=== PATIENT | male | born 1950 | race Caucasian/White ===

== ENCOUNTER 2024-10-03 19:26 | Observation (INO) | payer MEDICARE ==
[2024-10-03] MEDS ORDERED: Aspirin Chewable 81 MG TAB ONE (19:56)
[2024-10-03 19:58] LABS: #Basophils Less than 0.03 10x3/uL (0.0-0.2); %Basophils 0.4 % (0.0-1.0); %Eosinophils 2.5 % (0.0-10.0); %Lymphocytes 35.3 % (21.0-51.0); %Monocytes 14.3 % (0.0-10.0); %Neutrophils 47.3 % (42.0-75.0); Hematocrit 44.6 % (42.0-52.0); Hemoglobin 14.6 g/dL (14.0-18.0); Mean Corpuscular HGB CONC 32.7 g/dL (32.0-36.0); Mean Corpuscular Hemoglobin 29.6 pg (27.0-31.0); Mean Corpuscular Volume 90.3 fL (78.0-98.0); Mean Platelet Volume 9.9 fL (7.4-10.4); Platelet Count 241 10x3/uL (130-400); RBC Distribution Width 12.2 % (11.5-14.5); Red Blood Cell (RBC) Count 4.94 mill/uL (4.70-6.10)
[2024-10-03 20:14] LABS: ALT (SGPT) 24 U/L (8-55); AST (SGOT) 23 U/L (5-34); Albumin 3.6 g/dL (3.4-4.8); Alkaline Phosphatase 104 U/L (40-110); Anion Gap 14 mmol/L (10-20); BUN (Urea Nitrogen) 17 mg/dL (8.4-25.7); Bilirubin, Total 0.6 mg/dL (0.2-1.2); Calc. Creatinine Clearance 0 mL/min (70-130); Calcium 9.8 mg/dL (7.8-10.44); Carbon Dioxide 26 mmol/L (23-31); Chloride 108 mmol/L (98-107); Estimated GFR 86; Globulin 3.5 g/dL (2.4-3.5); Glucose 128 mg/dL (83-110); Lipase 62 U/L (8-78); Potassium 3.7 mmol/L (3.5-5.1); Protein, Total 7.1 g/dL (5.8-8.1); Sodium 144 mmol/L (136-145)
[2024-10-03 20:19] LABS: Troponin I 0.023 ng/mL (< 0.028)
[2024-10-03] MEDS ORDERED: traMADol HCl 50 MG TAB PO PRN (21:57)
[2024-10-03] MEDS ORDERED: Acetaminophen 325 MG TAB PO PRN (21:57)
[2024-10-03] MEDS ORDERED: Senokot S 8.6-50 MG TAB PO PRN (21:57)
[2024-10-03 23:27] VITALS: BMI 25.9
[2024-10-04 00:21] LABS: Troponin I 0.031 ng/mL (< 0.028)
[2024-10-04 02:36] LABS: Troponin I 0.087 ng/mL (< 0.028)
[2024-10-04 04:44] LABS: Hematocrit 40.6 % (42.0-52.0); Hemoglobin 13.3 g/dL (14.0-18.0); Mean Corpuscular HGB CONC 32.8 g/dL (32.0-36.0); Mean Corpuscular Hemoglobin 29.1 pg (27.0-31.0); Mean Corpuscular Volume 88.8 fL (78.0-98.0); Mean Platelet Volume 10.5 fL (7.4-10.4); Platelet Count 213 10x3/uL (130-400); RBC Distribution Width 12.4 % (11.5-14.5); Red Blood Cell (RBC) Count 4.57 mill/uL (4.70-6.10)
[2024-10-04 05:15] LABS: Anion Gap 12 mmol/L (10-20); BUN (Urea Nitrogen) 16 mg/dL (8.4-25.7); Calc. Creatinine Clearance 101 mL/min (70-130); Calcium 9.2 mg/dL (7.8-10.44); Carbon Dioxide 22 mmol/L (23-31); Chloride 112 mmol/L (98-107); Estimated GFR 94; Glucose 99 mg/dL (83-110); Potassium 3.6 mmol/L (3.5-5.1); Sodium 142 mmol/L (136-145)
[2024-10-04] MEDS: Ezetimibe 10 MG TAB PO SCH (07:35)
[2024-10-04] MEDS: Aspirin 81 mg Enteric Coated Tablet PO SCH (07:35)
[2024-10-04] MEDS: Clopidogrel Bisulfate 75 MG TAB PO SCH (07:35)
[2024-10-04] MEDS ORDERED: Non-Formulary Item 1 EACH (Hydrochlorothiazide [Hydrochlorothiazide] 12.5 MG Tablet) PO SCH (09:00)
[2024-10-04] MEDS: Hydrochlorothiazide 25 MG TAB PO SCH (09:21)
[2024-10-04] MEDS ORDERED: Regadenoson 0.4 MG/5 ML SYRINGE ONE (11:21)
[2024-10-04] MEDS: Isosorbide Mononitrate 30 MG ER.TAB PO SCH (16:37)
[2024-10-04] MEDS ORDERED: Nitroglycerin 0.4 MG TAB (25 Tab Bottle) SL PRN (16:38)
[2024-10-04] MEDS ORDERED: Labetalol HCl 100 MG/20 ML VIAL SLOW IVP PRN (16:42)
[2024-10-04 16:43] LABS: INR-International Normal Ratio 1.2; Prothrombin Time 14.9 sec (12.0-14.7)
[2024-10-04 16:46] LABS: D-Dimer Test Less than 0.27 mcg/mL (0.27-0.43)
[2024-10-04] MEDS: Atorvastatin Calcium 40 MG TAB PO SCH (20:34)
[2024-10-04] MEDS ORDERED: Non-Formulary Item 1 EACH (Losartan Potassium [Losartan Potassium] 50 MG Tablet) PO SCH (21:00)
[2024-10-04] MEDS ORDERED: Losartan 25 MG TAB PO SCH (21:00)
[2024-10-05 07:18] LABS: #Basophils Less than 0.03 10x3/uL (0.0-0.2); %Basophils 0.3 % (0.0-1.0); %Eosinophils 1.5 % (0.0-10.0); %Lymphocytes 25.7 % (21.0-51.0); %Monocytes 10.3 % (0.0-10.0); %Neutrophils 61.9 % (42.0-75.0); Hematocrit 42.9 % (42.0-52.0); Hemoglobin 14.1 g/dL (14.0-18.0); Mean Corpuscular HGB CONC 32.9 g/dL (32.0-36.0); Mean Corpuscular Hemoglobin 29.7 pg (27.0-31.0); Mean Corpuscular Volume 90.5 fL (78.0-98.0); Mean Platelet Volume 10.1 fL (7.4-10.4); Platelet Count 229 10x3/uL (130-400); RBC Distribution Width 12.4 % (11.5-14.5); Red Blood Cell (RBC) Count 4.74 mill/uL (4.70-6.10)
[2024-10-05 07:47] LABS: Anion Gap 12 mmol/L (10-20); BUN (Urea Nitrogen) 15 mg/dL (8.4-25.7); Calc. Creatinine Clearance 88 mL/min (70-130); Calcium 9.5 mg/dL (7.8-10.44); Carbon Dioxide 23 mmol/L (23-31); Chloride 112 mmol/L (98-107); Estimated GFR 89; Glucose 91 mg/dL (83-110); Magnesium 1.9 mg/dL (1.6-2.6); Potassium 3.8 mmol/L (3.5-5.1); Sodium 143 mmol/L (136-145)
[2024-10-05] MEDS ORDERED: Isosorbide Mononitrate 30 MG ER.TAB PO SCH (09:00)
[2024-10-05 11:12] VITALS: BP 110/61; TEMP 97.2
== END 2024-10-05 13:18 | disposition home or self-care (01) ==
LOC: ERS 19:26 → OBS 21:40
PROVIDERS: ADMIT Family Medicine; ATTEND Family Medicine
DX: R07.9 Chest pain, unspecified (principal); S14.105A Unspecified injury at C5 level of cervical spinal cord, initial encounter; I25.10 Atherosclerotic heart disease of native coronary artery without angina pectoris; C61 Malignant neoplasm of prostate; E78.5 Hyperlipidemia, unspecified; I10 Essential (primary) hypertension; R53.1 Weakness; Z95.1 Presence of aortocoronary bypass graft; Z79.899 Other long term (current) drug therapy; X50.0XXA Overexertion from strenuous movement or load, initial encounter
CPT/HCPCS: 36415; 71045; 78452; 80048; 80053; 83690; 83735; 84484; 85025; 85027; 85379; 85610; 85730; 86850; 86900; 86901; 93005; 93010; 93017; A9502; G0378; J2785

== ENCOUNTER 2024-10-06 03:05 | Inpatient (IN) | payer MEDICARE ==
[2024-10-06 03:46] LABS: #Basophils 0.03 10x3/uL (0.0-0.2); %Basophils 0.4 % (0.0-1.0); %Eosinophils 1.9 % (0.0-10.0); %Lymphocytes 24.7 % (21.0-51.0); %Monocytes 12.2 % (0.0-10.0); %Neutrophils 60.5 % (42.0-75.0); Hematocrit 43.2 % (42.0-52.0); Hemoglobin 14.3 g/dL (14.0-18.0); Mean Corpuscular HGB CONC 33.1 g/dL (32.0-36.0); Mean Corpuscular Hemoglobin 29.6 pg (27.0-31.0); Mean Corpuscular Volume 89.4 fL (78.0-98.0); Mean Platelet Volume 10.5 fL (7.4-10.4); Platelet Count 242 10x3/uL (130-400); RBC Distribution Width 12.2 % (11.5-14.5); Red Blood Cell (RBC) Count 4.83 mill/uL (4.70-6.10)
[2024-10-06 04:14] LABS: ALT (SGPT) 22 U/L (8-55); AST (SGOT) 23 U/L (5-34); Albumin 3.6 g/dL (3.4-4.8); Alkaline Phosphatase 112 U/L (40-110); Anion Gap 13 mmol/L (10-20); BUN (Urea Nitrogen) 15 mg/dL (8.4-25.7); Bilirubin, Total 0.7 mg/dL (0.2-1.2); Calc. Creatinine Clearance 0 mL/min (70-130); Calcium 10.2 mg/dL (7.8-10.44); Carbon Dioxide 25 mmol/L (23-31); Chloride 108 mmol/L (98-107); Estimated GFR 71; Globulin 3.6 g/dL (2.4-3.5); Glucose 108 mg/dL (83-110); Potassium 4.4 mmol/L (3.5-5.1); Protein, Total 7.2 g/dL (5.8-8.1); Sodium 142 mmol/L (136-145)
[2024-10-06 04:24] LABS: Troponin I 0.435 ng/mL (< 0.028)
[2024-10-06] MEDS ORDERED: Heparin 5,000 UNITS/ML VIAL ONE (04:54)
[2024-10-06] MEDS ORDERED: Nitroglycerin 0.4 MG TAB 1 EACH ONE (04:55)
[2024-10-06] MEDS ORDERED: Heparin 25,000 units/D5W 500 ML ONE (04:55)
[2024-10-06] MEDS ORDERED: Aspirin Chewable 81 MG TAB ONE (04:56)
[2024-10-06 05:36] LABS: INR-International Normal Ratio 1.1; Prothrombin Time 14.3 sec (12.0-14.7)
[2024-10-06 05:37] LABS: PTT 35.6 sec (22.9-36.1)
[2024-10-06] MEDS ORDERED: Nitroglycerin 0.4 MG TAB (25 Tab Bottle) SL SCH (05:45)
[2024-10-06] MEDS ORDERED: Nitroglycerin 2% Ointment 1 INCH/1 GM Packet ONE (05:50)
[2024-10-06] MEDS ORDERED: Heparin 10,000 UNITS/ 10 ML VIAL SLOW IVP SCH (06:00)
[2024-10-06] MEDS ORDERED: Heparin 25,000 units/D5W 500 ML IVPB SCH (06:00)
[2024-10-06 06:08] VITALS: BMI 26.8
[2024-10-06 06:48] LABS: Troponin I 0.484 ng/mL (< 0.028)
[2024-10-06 08:26] VITALS: BP 146/81
[2024-10-06] MEDS ORDERED: Nitroglycerin 0.4 MG TAB (25 Tab Bottle) SL PRN ×2 (08:30→12:33)
[2024-10-06] MEDS ORDERED: Aspirin 81 mg Enteric Coated Tablet PO SCH (09:00)
[2024-10-06] MEDS ORDERED: Heparin 10,000 UNITS/ 10 ML VIAL ONE (09:31)
[2024-10-06] MEDS ORDERED: Nitroglycerin 50 MG/250 ML BOT 250 ML ONE (09:31)
[2024-10-06] MEDS ORDERED: fentaNYL 50 mcg/mL 1 mL Vial ONE (09:31)
[2024-10-06] MEDS ORDERED: Midazolam HCl 2 mg/2 ml Vial ONE (09:31)
[2024-10-06 10:33] LABS: Troponin I 0.643 ng/mL (< 0.028)
[2024-10-06] MEDS: Nitroglycerin 50 MG/250 ML BOT 250 ML IVPB SCH (12:11)
[2024-10-06] MEDS: Ezetimibe 10 MG TAB PO SCH (12:11)
[2024-10-06] MEDS: Clopidogrel Bisulfate 75 MG TAB PO SCH (12:11)
[2024-10-06] MEDS: Isosorbide Mononitrate 30 MG ER.TAB PO SCH (12:11)
[2024-10-06] MEDS ORDERED: Sodium Chloride 0.9% 200 ML IV PRN (12:33)
[2024-10-06] MEDS: Sodium Chloride 0.9% 1,000 ML IV SCH (14:15)
[2024-10-06] MEDS ORDERED: Iopamidol 370 76% 100 ML VIAL ONE (14:50)
[2024-10-06] MEDS: Ondansetron PF 4 MG/2 ML Vial IVP PRN (17:39)
[2024-10-06] MEDS: Heparin 25,000 units/D5W 500 ML IV SCH (17:43)
[2024-10-06] MEDS: Atorvastatin Calcium 40 MG TAB PO SCH (20:23)
[2024-10-07] MEDS ORDERED: Heparin 25,000 units/D5W 500 ML IV SCH (00:01)
[2024-10-07] MEDS: Heparin 10,000 UNITS/ 10 ML VIAL SLOW IVP SCH (00:58)
[2024-10-07 07:22] LABS: #Basophils Less than 0.03 10x3/uL (0.0-0.2); %Basophils 0.2 % (0.0-1.0); %Eosinophils 0.7 % (0.0-10.0); %Lymphocytes 19.1 % (21.0-51.0); %Monocytes 11.1 % (0.0-10.0); %Neutrophils 68.4 % (42.0-75.0); Hematocrit 41.3 % (42.0-52.0); Hemoglobin 13.7 g/dL (14.0-18.0); Mean Corpuscular HGB CONC 33.2 g/dL (32.0-36.0); Mean Corpuscular Hemoglobin 29.6 pg (27.0-31.0); Mean Corpuscular Volume 89.2 fL (78.0-98.0); Mean Platelet Volume 10.9 fL (7.4-10.4); Platelet Count 203 10x3/uL (130-400); RBC Distribution Width 12.2 % (11.5-14.5); Red Blood Cell (RBC) Count 4.63 mill/uL (4.70-6.10)
[2024-10-07 07:31] LABS: Anion Gap 13 mmol/L (10-20); BUN (Urea Nitrogen) 12 mg/dL (8.4-25.7); Calc. Creatinine Clearance 96 mL/min (70-130); Calcium 8.9 mg/dL (7.8-10.44); Carbon Dioxide 21 mmol/L (23-31); Chloride 110 mmol/L (98-107); Estimated GFR 93; Glucose 95 mg/dL (83-110); Potassium 3.7 mmol/L (3.5-5.1); Sodium 140 mmol/L (136-145)
[2024-10-07] MEDS: Aspirin 81 mg Enteric Coated Tablet PO SCH (10:59)
[2024-10-07 12:40] VITALS: TEMP 98.2
[2024-10-07] MEDS: Acetaminophen 325 MG TAB PO PRN (13:21)
== END 2024-10-07 13:40 | disposition short-term general hospital (02) | DRG 282 ==
LOC: ERS 03:05 → ERHOLD 05:41 → CCU 12:15
PROVIDERS: ADMIT Internal Medicine; ATTEND Family Medicine
PROC: 4A023N7 Measurement of Cardiac Sampling and Pressure, Left Heart, Percutaneous Approach (ICD-10-PCS; principal; 2024-10-06)
PROC: B2151ZZ Fluoroscopy of Left Heart using Low Osmolar Contrast (ICD-10-PCS; 2024-10-06)
PROC: B2111ZZ Fluoroscopy of Multiple Coronary Arteries using Low Osmolar Contrast (ICD-10-PCS; 2024-10-06)
DX: I21.4 Non-ST elevation (NSTEMI) myocardial infarction (principal); F17.220 Nicotine dependence, chewing tobacco, uncomplicated; I25.10 Atherosclerotic heart disease of native coronary artery without angina pectoris; I10 Essential (primary) hypertension; Z79.899 Other long term (current) drug therapy; Z98.890 Other specified postprocedural states; Z98.49 Cataract extraction status, unspecified eye; Z95.0 Presence of cardiac pacemaker; E78.5 Hyperlipidemia, unspecified; Z79.82 Long term (current) use of aspirin
CPT/HCPCS: 36415; 71045; 78452; 80048; 80053; 83690; 83735; 84484; 85025; 85027; 85347; 85379; 85610; 85730; 86850; 86900; 86901; 93005; 93017; 93306; 93458; 93459; 96374; 97139; 99152; 99153; A9502; C1769; C1887; J1644; J2250; J2405; J2785; J3010; J7030; Q9967